=== PATIENT | male | born 1955 | race Caucasian/White ===

== ENCOUNTER 2016-11-15 18:01 | Emergency (ER) | payer OTHER ==
--- NOTE | 2016-11-15 19:25 | ED NURSING NOTES ---
Clinical Report - Nurses [facility] [address] [place] [address] 11/15/2016 18:02 Patient: DAVID NAJERA TRIAGE Triage time 18:Nov 15 2016. Acuity: LEVEL 3. Chief Complaint: DIZZINESS (tachycardia). Alert. No acute distress. --18:12 Alyce Li R.N. 18:03 11/15/16. BP: 195/111. HR: 123. RR: 19. O2 saturation: 98%. Temp: 98.5 F. Pain level now: 0/10. --18:12 Alyce Li R.N. Weight: 81.6 kg stated. Height/Length: 68 inches Per Patient. BMI: 27.4. --18:13 Alyce Li R.N. Medications Albuterol Sulfate Inhalation. --18:04 Alyce Li R.N. Allergies Penicillin. --18:05 Alyce Li R.N. History Arrived by private vehicle. Historian: patient. The patient has had difficulty breathing. 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 Treatment STATE INSPECTOR: None. PAST MEDICAL HX: Immunizations: status is unknown. SOCIAL HX: Never smoker. Occasional alcohol use. No drug use. No infectious disease exposure. SELF HARM ASSESSMENT: A self harm assessment was performed. The patient answered "no" to the question "Do you have thoughts of harming or killing yourself?". FALL RISK ASSESSMENT: Fall risk assessment completed. No fall risk identified. NUTRITIONAL RISK ASSESSMENT: The nutritional risk assessment revealed no deficiencies. FUNCTIONAL ASSESSMENT: Functional assessment: no impairments noted. LEARNING NEEDS ASSESSMENT: The learning needs assessment revealed no barriers. ABUSE ASSESSMENT: Abuse assessment: The patient was asked "Do you feel safe in your home?". SKIN INTEGRITY ASSESSMENT: Skin integrity risk assessment completed. No skin integrity risk identified. --18:12 Alyce Li R.N. PROBLEMS: Asthma. Hypertension. --18:05 Alyce Li R.N. Eczema. --18:07 Alyce Li R.N. Interventions ID band on patient. --18:12 Alyce Li R.N. PHYSICAL ASSESSMENT To room via stretcher. GENERAL / NEURO / PSYCH: Alert. Oriented X 4. Appears in no acute distress. HEENT: Mucous membranes are pink. RESPIRATORY: Respirations not labored. CVS: Capillary refill less than 2 seconds. GI / : Abdomen soft. SKIN: Skin is warm and dry. --18:12 Alyce Li R.N. NURSING PROGRESS NOTES bryologist, pulse oximeter and NIBP monitor placed on patient; forest fire fighter- Lead II; monitor alarms on. Patient gowned. Head of bed elevated. Two patient identifiers checked. Call light placed in reach. Side rails up. Bed placed in lowest position. Brakes of bed on. Patient ready for evaluation- chart flagged. --18:13 Alyce Li R.N. 18:42 11/15/16. BP: 151/77. HR: 122. RR: 12. O2 saturation: 97%. --18:43 Alyce Li R.N. 18:04 11/15/2016 Site #1 started prior to arrival by EMS via IV in the left forearm with an 20g angiocath. --18:44 Alyce Li R.N. 18:33 11/15/16. --18:43 Alyce Li R.N. 18:33 11/15/2016 Labetalol IVP 10 mg given over 2 minute(s) via site #1. Allergies verified and confirmed 5 rights. IV patency established. IV site checked: no pain, redness, or swelling. IV flushed thoroughly pre- and post-medication administration. --18:45 Alyce Li R.N. 18:44 11/15/2016 Started bag #1 1000 mL IV Fluids IV NS (Saline); bolus of 1000 mL over 1 hour(s) via site #1. Allergies verified and confirmed 5 rights. IV patency established. IV site checked: no pain, redness, or swelling. IV flushed thoroughly pre- and post-medication administration. --18:44 Alyce Li R.N. 19:02 11/15/16. BP: 126/78. HR: 92. O2 saturation: 98%. --19:02 Alyce Li R.N. Care transferred and report given (braxton). --19:06 Alyce Li R.N. 18:48 11/15/2016 Labetalol IVP Response: symptoms have improved the patient feels better. (held other 10mg of medication. MD aware. Blood pressure improving rapidly.). --19:08 Alyce Li R.N. DISPOSITION / DISCHARGE 19:47 11/15/16. Departure time: 1935. Condition at departure: improved and stable. No learning barriers present. Discharge instructions provided and reviewed with the patient and family. Reviewed medication(s) side effects, precautions, dosing and course information. Prescription(s) given to the patient. Patient verbalized understanding. Written instructions provided in [place]. The patient was discharged by the physician. He was discharged home and accompanied by parent. He left the Emergency Department ambulatory and via private vehicle. Parent driving. --19:48 Julienne Lemus R.N. 19:39 11/15/16. BP: 152/96. HR: 93. RR: 20. O2 saturation: 99% on room air. Temp: 98 F (oral). Pain level now 0/10. --19:48 Julienne Lemus R.N. Locked/Released at 11/27/2016 9:15 by Aaliyah Gambino R.N.
--- NOTE | 2016-11-15 19:25 | ED CLINICAL REPORT ---
Clinical Report - Physicians/Mid Levels [facility] [address] [place] [address] 11/15/2016 18:02 Patient: DAVID NAJERA Time Seen: 1803. Arrived- By ambulance. Historian- patient and EMS personnel. HISTORY OF PRESENT ILLNESS Chief Complaint: PALPITATIONS. Modifying factors. Not worsened by anything. Not relieved by anything. This started today and is now gone. Did not begin during emotional upset, sleep, rest or exertion. No history of caffeine use prior to onset, decongestants use prior to onset, cocaine use prior to onset or amphetamine use prior to onset. It is described as a fast heart beat and missing beats. He complains of dizziness. No chest pain or discomfort, difficulty breathing, sweating episodes or fainting episodes. No tingling or muscle spasms. He has had mild dizziness described as a light-headedness. ( Pt states he was [facility]x [facility]. He is here from [place], visiting his mother. He states he does not have a PCP, and does not like to go to the doctor. Pt does note a rash, which he states started when he came here 10 days ago. He states his mother does not have the same rash.). Similar symptoms previously: Occasionally. ( Pt states he was dx with HTN some years ago, but works out and drinks lots of water to control it.). Recent medical care: ( Pt states, "I don't go to doctors. I have a bunch of medical books, and I've read them all."). Not recently seen/assessed. REVIEW OF SYSTEMS No fever, chills, cough, orthopnea or calf pain. No enlarged lymph nodes, headache, sore throat, blurred vision or nausea. No abdominal pain, black stools, difficulty with urination, trouble sleeping or vomiting. No diarrhea or bloody stools. The patient has had a moderate, itchy skin rash. No recent exposure. He has not had a poor appetite. All systems otherwise negative, except as recorded above. PAST HISTORY Problems: Eczema. Asthma. Hypertension. Additional Surgeries: no known surgeries. Medications: Albuterol Sulfate Inhalation. Allergies: Penicillin. SOCIAL HISTORY Never smoker. Occasional alcohol use. No drug use. ADDITIONAL NOTES The nursing notes have been reviewed. PHYSICAL EXAM Vital Signs: 11/15/2016 18:03 BP: 195/111. HR: 123. RR: 19. O2 saturation: 98%. Temp: 98.5 F. Pain level now: 0/10. Have been reviewed. Appearance: Alert. Oriented X3. No acute distress. Eyes: Pupils equal, round and reactive to light. Eyes normal inspection. ENT: Nose normal. Neck: Normal inspection. CVS: Tachycardia. Heart sounds normal. Pulses normal. Rhythm normal. Respiratory: No respiratory distress. Breath sounds normal. Abdomen: Soft and nontender. Back: Normal external inspection. Skin: Skin warm and dry. Normal skin color. No rash. Normal skin turgor. Extremities: Extremities exhibit normal ROM. No lower extremity edema. Neuro: Oriented X 3. No motor deficit. No sensory deficit. LABS, X-RAYS, AND EKG EKG: EKG time: (1811). No acute ischemia. Rate: 117. Regular narrow-complex tachycardia. Sinus tachycardia. Normal P waves. Normal MELANIE. Normal QRS complex. Normal axis. Normal ST and T waves, QT and QTc. Prior EKG unavailable. The study has been interpreted contemporaneously by me. The study has been independently viewed by me. The EKG appears to be a good tracing. I agree with and confirm the computer reading of the EKG. Rhythm Strip #1: Time: (18:31). Rate= 123. Sinus tachycardia. Regular rhythm. Narrow QRS complexes. No ectopy. Conduction normal. Normal ST segments and T waves. The study was interpreted by me. Laboratory Tests: CBC w Diff: (ROSANNA: 11/15/2016 18:20) ( MsgRcvd 11/15/2016 18:40) Final results Test Result Flag Units (Reference) WHITE BLOOD COUNT 12.6 H K/uL (4.5-11.5) RED BLOOD COUNT 5.43 M/uL (4.50-5.90) HEMOGLOBIN 16.2 gm/dL (13.5-17.5) HEMATOCRIT 47.9 % (41.0-53.0) MEAN CELL VOLUME 88 fL (80-100) MEAN CORPUSCULAR HGB 30 pg (26-34) MEAN CORPUSCULAR HGB CONC 34 g/dL (31-37) RED CELL DISTRIBUTION WIDTH 13.5 % (11.6-14.8) PLATELET COUNT 252 K/uL (150-400) NEUTROPHIL % 67.5 % (50-75) LYMPH % 17.4 L % (25-40) MONO % 5.6 % (3-14) EOSINOPHIL % 9.1 H % (0-4) BASOPHIL % 0.4 % (0-2) CHEM 13 PANEL: (ROSANNA: 11/15/2016 18:20) ( MsgRcvd 11/15/2016 18:49) Final results Test Result Flag Units (Reference) GLUCOSE 100 mg/dL (70-110) BUN 19 H mg/dL (7-18) CREATININE 1.2 mg/dL (0.6-1.3) Estimated GFR >60 mL/min Estimated GFR- >60 mL/min Note: Persistent reduction over 3 months in eGFR<60 mL/min/1.73 m2 defines CKD. Patients with eGFR values>=60 mL/min/1.73 m2 may also have CKD if evidence ofpersistent proteinuria. Additional information may be foundat www.kidney.org. SODIUM 143 mmol/L (136-145) POTASSIUM 3.9 mmol/L (3.5-5.1) CHLORIDE 109 H mmol/L (98-107) CARBON DIOXIDE 28 mmol/L (21-32) CALCIUM 8.7 mg/dL (8.5-10.1) TOTAL PROTEIN 6.9 g/dL (6.4-8.2) ALBUMIN 3.2 L g/dL (3.3-5.0) BILIRUBIN, TOTAL 0.3 mg/dL (0.0-1.0) ALKALINE PHOSPHATASE 48 U/L (46-116) AST (SGOT) 15 U/L (15-37) ALT (SGPT) 32 U/L (12-78) CPK 42 U/L (24-260) MAGNESIUM 2.0 mg/dL (1.8-2.4) TROPONIN I <0.05 ng/mL (0.00-1.5) TROPONIN REFERENCE RANGE:<0.1 NEGATIVE0.1-1.5 INDETERMINANT>1.5 POSITIVE . Pulse Oximetry: 11/15/2016 18:03 O2 saturation: 98%. (FIO2 - room air). Interpretation: normal. PROGRESS AND PROCEDURES Course of Care: Pt was worked up, and treated with IV Labetolol. His blood pressure improved significantly, and he was asymptomatic. Labs were unremarkable. I did advise pt that he needed to see a PCP as soon as possible to determine a long-term plan for treatment of his HTN. I will give him a short-term antihypertensive prescription. Patient and mother counseled in person regarding the patient's stable condition, test results, diagnosis and need for follow-up. Concerns were addressed. Old medical records reviewed. Disposition: Discharged. Condition: stable and improved. CLINICAL IMPRESSION Palpitations Uncontrolled hypertension. INSTRUCTIONS Warnings: Further evaluation is necessary. GENERAL WARNINGS: Return or contact your physician immediately if your condition worsens or changes unexpectedly, if not improving as expected, or if other problems arise. Your Current Medications: CONTINUE TAKING THE FOLLOWING MEDICATIONS: Albuterol Sulfate Inhalation. Prescription Medications: Lopressor 50 mg: take 1 orally every 12 hours. Dispense thirty (30). No refills. Substitution is permissible. Understanding of the discharge instructions verbalized by patient. Follow-up with: Kevin Aguilar MD, [facility], , [facility], [address] [place] [address]; Kevin Snyder MD, [facility], , [facility], [address] [place] [address] Follow up. Call for the next available appointment. Reason for referral: Follow up for high blood pressure. (Electronically signed by Elzbieta Delaney MD 11/23/2016 9:52)
--- NOTE | 2016-11-15 19:25 | ED NURSING NOTES ---
Clinical Report - Nurses [facility] [address] [place] [address] 11/15/2016 18:02 Patient: DAVID NAJERA TRIAGE Triage time 18:Nov 15 2016. Acuity: LEVEL 3. Chief Complaint: DIZZINESS (tachycardia). Alert. No acute distress. --18:12 Alyce Li R.N. 18:03 11/15/16. BP: 195/111. HR: 123. RR: 19. O2 saturation: 98%. Temp: 98.5 F. Pain level now: 0/10. --18:12 Alyce Li R.N. Weight: 81.6 kg stated. Height/Length: 68 inches Per Patient. BMI: 27.4. --18:13 Alyce Li R.N. Medications Albuterol Sulfate Inhalation. --18:04 Alyce Li R.N. Allergies Penicillin. --18:05 Alyce Li R.N. History Arrived by private vehicle. Historian: patient. The patient has had difficulty breathing. 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 Treatment OIL TANKER CAPTAIN: None. PAST MEDICAL HX: Immunizations: status is unknown. SOCIAL HX: Never smoker. Occasional alcohol use. No drug use. No infectious disease exposure. SELF HARM ASSESSMENT: A self harm assessment was performed. The patient answered "no" to the question "Do you have thoughts of harming or killing yourself?". FALL RISK ASSESSMENT: Fall risk assessment completed. No fall risk identified. NUTRITIONAL RISK ASSESSMENT: The nutritional risk assessment revealed no deficiencies. FUNCTIONAL ASSESSMENT: Functional assessment: no impairments noted. LEARNING NEEDS ASSESSMENT: The learning needs assessment revealed no barriers. ABUSE ASSESSMENT: Abuse assessment: The patient was asked "Do you feel safe in your home?". SKIN INTEGRITY ASSESSMENT: Skin integrity risk assessment completed. No skin integrity risk identified. --18:12 Alyce Li R.N. PROBLEMS: Asthma. Hypertension. --18:05 Alyce Li R.N. Eczema. --18:07 Alyce Li R.N. Interventions ID band on patient. --18:12 Alyce Li R.N. PHYSICAL ASSESSMENT To room via stretcher. GENERAL / NEURO / PSYCH: Alert. Oriented X 4. Appears in no acute distress. HEENT: Mucous membranes are pink. RESPIRATORY: Respirations not labored. CVS: Capillary refill less than 2 seconds. GI / : Abdomen soft. SKIN: Skin is warm and dry. --18:12 Alyce Li R.N. NURSING PROGRESS NOTES library monitor, pulse oximeter and NIBP monitor placed on patient; property assessment monitor- Lead II; monitor alarms on. Patient gowned. Head of bed elevated. Two patient identifiers checked. Call light placed in reach. Side rails up. Bed placed in lowest position. Brakes of bed on. Patient ready for evaluation- chart flagged. --18:13 Alyce Li R.N. 18:42 11/15/16. BP: 151/77. HR: 122. RR: 12. O2 saturation: 97%. --18:43 Alyce iL R.N. 18:04 11/15/2016 Site #1 started prior to arrival by EMS via IV in the left forearm with an 20g angiocath. --18:44 Alyce Li R.N. 18:33 11/15/16. --18:43 Alyce Li R.N. 18:33 11/15/2016 Labetalol IVP 10 mg given over 2 minute(s) via site #1. Allergies verified and confirmed 5 rights. IV patency established. IV site checked: no pain, redness, or swelling. IV flushed thoroughly pre- and post-medication administration. --18:45 Alyce Li R.N. 18:44 11/15/2016 Started bag #1 1000 mL IV Fluids IV NS (Saline); bolus of 1000 mL over 1 hour(s) via site #1. Allergies verified and confirmed 5 rights. IV patency established. IV site checked: no pain, redness, or swelling. IV flushed thoroughly pre- and post-medication administration. --18:44 Alyce Li R.N. 19:02 11/15/16. BP: 126/78. HR: 92. O2 saturation: 98%. --19:02 Alyce iL R.N. Care transferred and report given (braxton). --19:06 Alyce Li R.N. 18:48 11/15/2016 Labetalol IVP Response: symptoms have improved the patient feels better. (held other 10mg of medication. MD aware. Blood pressure improving rapidly.). --19:08 Alyce Li R.N. DISPOSITION / DISCHARGE 19:47 11/15/16. Departure time: 1935. Condition at departure: improved and stable. No learning barriers present. Discharge instructions provided and reviewed with the patient and family. Reviewed medication(s) side effects, precautions, dosing and course information. Prescription(s) given to the patient. Patient verbalized understanding. Written instructions provided in Citizen Of [place]. The patient was discharged by the physician. He was discharged home and accompanied by parent. He left the Emergency Department ambulatory and via private vehicle. Parent driving. --19:48 Julienne Lemus R.N. 19:39 11/15/16. BP: 152/96. HR: 93. RR: 20. O2 saturation: 99% on room air. Temp: 98 F (oral). Pain level now 0/10. --19:48 Julienne Lemus R.N. Locked/Released at 11/27/2016 9:15 by Aaliyah Gambino R.N.
--- NOTE | 2016-11-15 19:25 | ED ORDER SUMMARY ---
..... Patient: DAVID NAJERA OrderSheet [facility] VisitID: [id number] [place] [address] 61y, M Registration Date/Time: 11/15/2016 ORDER SHEET Weight: 81.6 kg (stated) Allergies: Penicillin GENERAL ORDERS: Cardiac Panel Stat (18:20 11/15/2016 Gabby MARAVILLA) (Ack 18:21 LNations ER Tech1) (18:30 KKnebel R.N.) Cell Lead (Continuous) (18:20 11/15/2016 Gabby MARAVILLA) (Ack 18:21 LNations ER Tech1) (18:23 KKnebel R.N.) Oxygen (2 L/min) (NC) (18:20 11/15/2016 Gabby MARAVILLA) (Ack 18:21 LNations ER Tech1) (18:23 KKnebel R.N.) Pulse oximeter (18:20 11/15/2016 Gabby MARAVILLA) (Ack 18:21 LNations ER Tech1) (18:23 KKnebel R.N.) EKG - ER Stat (18:20 11/15/2016 Gabby MARAVILLA) (18:21 KHoerner) (18:24 KKnebel R.N.) MEDICATION ORDERS: IV FLUIDS: IV NS : initial bolus 1000 mL (1000 mL/hr), then none - (NOW) (18:20 11/15/2016 Gabby MARAVILLA) (18:44 KKnebel R.N.) Labetalol IV 20 mg (HIGH ALERT MEDICATION, NOW) (18:20 11/15/2016 Gabby MARAVILLA) (18:45 KKnebel R.N.) ORDER SHEET NOTES: [Electronically signed by Elzbieta Delaney MD (09:52 11/23/2016)] [Electronically signed by Aaliyah Gambino R.N. (09:15 11/27/2016)] [Electronically locked/signed by Aaliyah Gambino R.N. (:11/27/2016)]
--- NOTE | 2016-11-15 19:25 | ED CLINICAL REPORT ---
Clinical Report - Physicians/Mid Levels [facility] [address] [place] [address] 11/15/2016 18:02 Patient: DAVID NAJERA Time Seen: 1803. Arrived- By ambulance. Historian- patient and EMS personnel. HISTORY OF PRESENT ILLNESS Chief Complaint: PALPITATIONS. Modifying factors. Not worsened by anything. Not relieved by anything. This started today and is now gone. Did not begin during emotional upset, sleep, rest or exertion. No history of caffeine use prior to onset, decongestants use prior to onset, cocaine use prior to onset or amphetamine use prior to onset. It is described as a fast heart beat and missing beats. He complains of dizziness. No chest pain or discomfort, difficulty breathing, sweating episodes or fainting episodes. No tingling or muscle spasms. He has had mild dizziness described as a light-headedness. ( Pt states he was at the [facility] when sx started. He is here from [place], visiting his mother. He states he does not have a PCP, and does not like to go to the doctor. Pt does note a rash, which he states started when he came here 10 days ago. He states his mother does not have the same rash.). Similar symptoms previously: Occasionally. ( Pt states he was dx with HTN some years ago, but works out and drinks lots of water to control it.). Recent medical care: ( Pt states, "I don't go to doctors. I have a bunch of medical books, and I've read them all."). Not recently seen/assessed. REVIEW OF SYSTEMS No fever, chills, cough, orthopnea or calf pain. No enlarged lymph nodes, headache, sore throat, blurred vision or nausea. No abdominal pain, black stools, difficulty with urination, trouble sleeping or vomiting. No diarrhea or bloody stools. The patient has had a moderate, itchy skin rash. No recent exposure. He has not had a poor appetite. All systems otherwise negative, except as recorded above. PAST HISTORY Problems: Eczema. Asthma. Hypertension. Additional Surgeries: no known surgeries. Medications: Albuterol Sulfate Inhalation. Allergies: Penicillin. SOCIAL HISTORY Never smoker. Occasional alcohol use. No drug use. ADDITIONAL NOTES The nursing notes have been reviewed. PHYSICAL EXAM Vital Signs: 11/15/2016 18:03 BP: 195/111. HR: 123. RR: 19. O2 saturation: 98%. Temp: 98.5 F. Pain level now: 0/10. Have been reviewed. Appearance: Alert. Oriented X3. No acute distress. Eyes: Pupils equal, round and reactive to light. Eyes normal inspection. ENT: Nose normal. Neck: Normal inspection. CVS: Tachycardia. Heart sounds normal. Pulses normal. Rhythm normal. Respiratory: No respiratory distress. Breath sounds normal. Abdomen: Soft and nontender. Back: Normal external inspection. Skin: Skin warm and dry. Normal skin color. No rash. Normal skin turgor. Extremities: Extremities exhibit normal ROM. No lower extremity edema. Neuro: Oriented X 3. No motor deficit. No sensory deficit. LABS, X-RAYS, AND EKG EKG: EKG time: (1811). No acute ischemia. Rate: 117. Regular narrow-complex tachycardia. Sinus tachycardia. Normal P waves. Normal MELANIE. Normal QRS complex. Normal axis. Normal ST and T waves, QT and QTc. Prior EKG unavailable. The study has been interpreted contemporaneously by me. The study has been independently viewed by me. The EKG appears to be a good tracing. I agree with and confirm the computer reading of the EKG. Rhythm Strip #1: Time: (18:31). Rate= 123. Sinus tachycardia. Regular rhythm. Narrow QRS complexes. No ectopy. Conduction normal. Normal ST segments and T waves. The study was interpreted by me. Laboratory Tests: CBC w Diff: (ROSANNA: 11/15/2016 18:20) ( MsgRcvd 11/15/2016 18:40) Final results Test Result Flag Units (Reference) WHITE BLOOD COUNT 12.6 H K/uL (4.5-11.5) RED BLOOD COUNT 5.43 M/uL (4.50-5.90) HEMOGLOBIN 16.2 gm/dL (13.5-17.5) HEMATOCRIT 47.9 % (41.0-53.0) MEAN CELL VOLUME 88 fL (80-100) MEAN CORPUSCULAR HGB 30 pg (26-34) MEAN CORPUSCULAR HGB CONC 34 g/dL (31-37) RED CELL DISTRIBUTION WIDTH 13.5 % (11.6-14.8) PLATELET COUNT 252 K/uL (150-400) NEUTROPHIL % 67.5 % (50-75) LYMPH % 17.4 L % (25-40) MONO % 5.6 % (3-14) EOSINOPHIL % 9.1 H % (0-4) BASOPHIL % 0.4 % (0-2) CHEM 13 PANEL: (ROSANNA: 11/15/2016 18:20) ( MsgRcvd 11/15/2016 18:49) Final results Test Result Flag Units (Reference) GLUCOSE 100 mg/dL (70-110) BUN 19 H mg/dL (7-18) CREATININE 1.2 mg/dL (0.6-1.3) Estimated GFR >60 mL/min Estimated GFR- >60 mL/min Note: Persistent reduction over 3 months in eGFR<60 mL/min/1.73 m2 defines CKD. Patients with eGFR values>=60 mL/min/1.73 m2 may also have CKD if evidence ofpersistent proteinuria. Additional information may be foundat www.kidney.org. SODIUM 143 mmol/L (136-145) POTASSIUM 3.9 mmol/L (3.5-5.1) CHLORIDE 109 H mmol/L (98-107) CARBON DIOXIDE 28 mmol/L (21-32) CALCIUM 8.7 mg/dL (8.5-10.1) TOTAL PROTEIN 6.9 g/dL (6.4-8.2) ALBUMIN 3.2 L g/dL (3.3-5.0) BILIRUBIN, TOTAL 0.3 mg/dL (0.0-1.0) ALKALINE PHOSPHATASE 48 U/L (46-116) AST (SGOT) 15 U/L (15-37) ALT (SGPT) 32 U/L (12-78) CPK 42 U/L (24-260) MAGNESIUM 2.0 mg/dL (1.8-2.4) TROPONIN I <0.05 ng/mL (0.00-1.5) TROPONIN REFERENCE RANGE:<0.1 NEGATIVE0.1-1.5 INDETERMINANT>1.5 POSITIVE . Pulse Oximetry: 11/15/2016 18:03 O2 saturation: 98%. (FIO2 - room air). Interpretation: normal. PROGRESS AND PROCEDURES Course of Care: Pt was worked up, and treated with IV Labetolol. His blood pressure improved significantly, and he was asymptomatic. Labs were unremarkable. I did advise pt that he needed to see a PCP as soon as possible to determine a long-term plan for treatment of his HTN. I will give him a short-term antihypertensive prescription. Patient and mother counseled in person regarding the patient's stable condition, test results, diagnosis and need for follow-up. Concerns were addressed. Old medical records reviewed. Disposition: Discharged. Condition: stable and improved. CLINICAL IMPRESSION Palpitations Uncontrolled hypertension. INSTRUCTIONS Warnings: Further evaluation is necessary. GENERAL WARNINGS: Return or contact your physician immediately if your condition worsens or changes unexpectedly, if not improving as expected, or if other problems arise. Your Current Medications: CONTINUE TAKING THE FOLLOWING MEDICATIONS: Albuterol Sulfate Inhalation. Prescription Medications: Lopressor 50 mg: take 1 orally every 12 hours. Dispense thirty (30). No refills. Substitution is permissible. Understanding of the discharge instructions verbalized by patient. Follow-up with: Kevin Aguilar MD, [facility], , [facility], [address] [place] [address]; Kevin Snyder MD, [facility], , [facility], [address] [place] [address] Follow up. Call for the next available appointment. Reason for referral: Follow up for high blood pressure. (Electronically signed by Elzbieta Delaney MD 11/23/2016 9:52)
--- NOTE | 2016-11-15 19:25 | ED ORDER SUMMARY ---
..... Patient: DAVID NAJERA OrderSheet [facility] VisitID: [id number] [place] [address] 61y, M Registration Date/Time: 11/15/2016 ORDER SHEET Weight: 81.6 kg (stated) Allergies: Penicillin GENERAL ORDERS: Cardiac Panel Stat (18:20 11/15/2016 Gabby MARAVILLA) (Ack 18:21 LNations ER Tech1) (18:30 KKnebel R.N.) Critical Care Rn (Continuous) (18:20 11/15/2016 Gabby MARAVILLA) (Ack 18:21 LNations ER Tech1) (18:23 KKnebel R.N.) Oxygen (2 L/min) (NC) (18:20 11/15/2016 Gabby MARAVILLA) (Ack 18:21 LNations ER Tech1) (18:23 KKnebel R.N.) Pulse oximeter (18:20 11/15/2016 Gabby MARAVILLA) (Ack 18:21 LNations ER Tech1) (18:23 KKnebel R.N.) EKG - ER Stat (18:20 11/15/2016 Gabby MARAVILLA) (18:21 KHoerner) (18:24 KKnebel R.N.) MEDICATION ORDERS: IV FLUIDS: IV NS : initial bolus 1000 mL (1000 mL/hr), then none - (NOW) (18:20 11/15/2016 Gabby MARAVILLA) (18:44 KKnebel R.N.) Labetalol IV 20 mg (HIGH ALERT MEDICATION, NOW) (18:20 11/15/2016 Gabby MARAVILLA) (18:45 KKnebel R.N.) ORDER SHEET NOTES: [Electronically signed by Elzbieta Delaney MD (09:52 11/23/2016)] [Electronically signed by Aaliyah Gambino R.N. (09:15 11/27/2016)] [Electronically locked/signed by Aaliyah Gambino R.N. (:11/27/2016)]
--- NOTE | 2016-11-27 09:15 | ED MED RECONCILIATION SUMMARY ---
Patient: DAVID NAJERA Medication Reconciliation Report [facility] VisitID: [id number] [address] [place] [address] 61y, M Registration Date/Time: 11/15/2016 Weight: 81.6 kg Height/Length: 68 in. BMI: 27.4 ALLERGIES: Penicillin The patient's Home Medications are listed below: CONTINUE TAKING THE FOLLOWING MEDICATIONS: Albuterol Sulfate Inhalation The source(s) of the original Home Medication information: Not obtained. The following Medications were given to the patient in the Emergency Department: IV NS IV Fluids bolus 1000 mL over 1 hour(s), administered: 11/15/2016 6:44:00 PM Labetalol [IVP] IVP 10 mg, administered: 11/15/2016 6:33:00 PM The following Medications were prescribed to the patient: Lopressor 50 mg: take 1 orally every 12 hours. Dispense thirty (30). No refills. Substitution is permissible. -- Elzbieta Delaney MD
--- NOTE | 2016-11-27 09:15 | ED MAR SUMMARY ---
..... Medication Administration Record [facility] [address] [place] [address] Patient: DAVID NAJERA Visit ID: [id number] 61y, M Weight: 81.6 kg Height/Length: 68 in BMI: 27.4 ALLERGIES: Penicillin Given 18:33 11/15/2016 Alyce Li RElen Medication Administered: LABETALOL [IVP], Dose: 10 mg IVP over 2 minute(s), Site: #1 left forearm. Medication Ordered: Labetalol IV 20 mg (HIGH ALERT MEDICATION, NOW). Start 18:44 11/15/2016 Alyce Li, RElen Medication Administered: IV NS (SALINE), Dose: IV Fluids, Bolus: 1000 mL over 1 hour(s), Dispensed: 1000 mL bag, Site: #1 left forearm. Medication Ordered: IV NS : initial bolus 1000 mL (1000 mL/hr), then none - (NOW).
--- NOTE | 2016-11-27 09:15 | ED MAR SUMMARY ---
..... Medication Administration Record [facility] [address] [place] [address] Patient: DAVID NAJERA Visit ID: [id number] 61y, M Weight: 81.6 kg Height/Length: 68 in BMI: 27.4 ALLERGIES: Penicillin Given 18:33 11/15/2016 Alyce Li RElen Medication Administered: LABETALOL [IVP], Dose: 10 mg IVP over 2 minute(s), Site: #1 left forearm. Medication Ordered: Labetalol IV 20 mg (HIGH ALERT MEDICATION, NOW). Start 18:44 11/15/2016 Alyce Li, RElen Medication Administered: IV NS (SALINE), Dose: IV Fluids, Bolus: 1000 mL over 1 hour(s), Dispensed: 1000 mL bag, Site: #1 left forearm. Medication Ordered: IV NS : initial bolus 1000 mL (1000 mL/hr), then none - (NOW).
--- NOTE | 2016-11-27 09:15 | ED MED RECONCILIATION SUMMARY ---
Patient: DAVID NAJERA Medication Reconciliation Report [facility] VisitID: [id number] [address] [place] [address] 61y, M Registration Date/Time: 11/15/2016 Weight: 81.6 kg Height/Length: 68 in. BMI: 27.4 ALLERGIES: Penicillin The patient's Home Medications are listed below: CONTINUE TAKING THE FOLLOWING MEDICATIONS: Albuterol Sulfate Inhalation The source(s) of the original Home Medication information: Not obtained. The following Medications were given to the patient in the Emergency Department: IV NS IV Fluids bolus 1000 mL over 1 hour(s), administered: 11/15/2016 6:44:00 PM Labetalol [IVP] IVP 10 mg, administered: 11/15/2016 6:33:00 PM The following Medications were prescribed to the patient: Lopressor 50 mg: take 1 orally every 12 hours. Dispense thirty (30). No refills. Substitution is permissible. -- Elzbieta Delaney MD
--- NOTE | 2016-11-27 09:15 | ED DISCHARGE INSTRUCTIONS ---
Patient: DAVID NAJERA General Instructions [facility] VisitID: [id number] [place] [address] 61y, M Registration Date/Time: 11/15/2016 Palpitations Uncontrolled hypertension. INSTRUCTIONS Warnings: Further evaluation is necessary. GENERAL WARNINGS: Return or contact your physician immediately if your condition worsens or changes unexpectedly, if not improving as expected, or if other problems arise. Your Current Medications: CONTINUE TAKING THE FOLLOWING MEDICATIONS: Albuterol Sulfate Inhalation. Prescription Medications: Lopressor 50 mg: take 1 orally every 12 hours. Dispense thirty (30). No refills. Substitution is permissible. Understanding of the discharge instructions verbalized by patient. Follow-up with: Kevin Aguilar MD, [facility], , [facility], [address] [place] [address]; Kevin Snyder MD, [facility], , [facility], [address] [place] [address] Follow up. Call for the next available appointment. Reason for referral: Follow up for high blood pressure. ADDITIONAL INFORMATION Arrhythmia Electrical impulses cause the normal heart to beat 60 to 100 times a minute. These impulses come from a natural pacemaker deep inside the heart muscle. Each impulse causes the heart muscle to contract. This causes the blood to flow through the heart and out to the tissues and organs of your body. An arrhythmia is a change from the normal speed or pattern of these electrical impulses. This can cause the heart to beat too fast (tachycardia); or too slow (bradycardia); or in an unsteady pattern (irregular rhythm). Symptoms of arrhythmias Different people experience arrhythmias differently. Sometimes they may not have symptoms, but just notice a change in their pulse. Symptoms can include: Fluttering feeling in the chest Shortness of breath Chest pain or pressure Lightheadedness or dizziness Fainting or nearly fainting Palpitations Tiredness, fatigue, or weakness Causes of arrhythmias Arrhythmias are most often due to heart disease such as: Coronary artery disease (arteriosclerosis) Disease of the heart valves Enlarged heart High blood pressure Heart failure Other causes ofarrhythmia include: Certain medicines (such as asthma inhalers and decongestants) Some herbal supplements Cardiac stimulant drugs (such as cocaine, amphetamine, diet pills, certain decongestant cold medicines, caffeine, and nicotine) Excessive alcohol use Medical conditions such as thyroid disease, anemia, anxiety, and panic disorder Arrythmias can often be prevented. The cause and type of arrhythmia determines the best treatment. Sometimes your doctor may want to monitor your heart rate over a 24-hour period or longer. This can help identify the cause of your arrhythmia and find the best treatment. This can be done with a Holter monitor,a portable EKG recording device attached by wires to your chest. You can carry this with you as you perform your routine activities during the monitoring period. Home care Avoid cardiac stimulants (such as cocaine, amphetamine, diet pills, certain decongestant cold medicines, caffeine, and nicotine). If you smoke, stop smoking. Contact your doctor or a local stop-smoking program for help. Tell your doctor about any prescription, [id number] or herbal medicines you take. These may be affecting your heart rhythm. Follow-up care Follow up with your health care provider or as advised by our staff. If a Holter monitor has been recommended, contact the cardiologistyou have been referred toas soon as you canpick up the device. Other outpatient tests may also be arranged for you at that time. Call 911 This is the fastest and safest way to get to the emergency department. The paramedics can also start treatment on the way to the hospital, if needed. Don'twait until your symptoms are severe to call 911. Other reasons to call 911 besides chest pain include: Chest, shoulder, arm, neck, or back pain Shortness of breath Feeling lightheaded, faint, or dizzy Rapid heart beat Slower than usual heart rate compared to your normal Angina withweakness, dizziness, fainting, heavy sweating, nausea, or vomiting Extreme drowsiness, or confusion Weakness of an arm or leg or one side of the face Difficulty with speech or vision When to seek medical care Remember, things are not always like they are on TV. Sometimes it is not so obvious. You may only feel weak or just "not right." If it is not clear or if you have any doubt, call for advice. Seek help for chest pain, or it feels different from usual, even if your symptoms are mild. Do not drive yourself. Have someone else drive. If no one can drive you, call 911. If your doctor has given you medicines to take when you have symptoms, take them, but do not delay getting help while trying to find them. Do not delay. Fast diagnosis and treatment can prevent or limit the amount of heart damage during a heart attack or stroke. Do not go to your doctor's ofice or a clinic because they will not be able to provide all of the testing or treatment required for this condition. Hypertension, Out Of Control (Established) Your blood pressure was unusually high today. This can occur as a result of missing doses of your blood pressure medicine. Some asthma inhalers, decongestants, diet pills, and street drugs such as cocaine and amphetamine can worsen hypertension. An increase in body weight, increase in salt intake, smoking, and caffeine are other causes. Emotional upset or acute pain can cause a sudden rapid rise in blood pressure which may return to normal after a period of rest. A normal blood pressure is less than 140/90. The first (top) number is the systolic pressure. The second (bottom) number is the diastolic pressure. Hypertension exists when either the top number is 140 or higher, OR the bottom number is 90 or higher on repeated measurements. Home Care: All patients with high blood pressure should do the following to lower their pressure. If you are on blood pressure medicines, then these methods may reduce or eliminate your need for medicines in the future. Begin a weight-loss program if you are overweight. Reduce your salt intake. Avoid high-salt foods (olives, pickles, smoked meats, salted potato chips, etc.). Do not add salt to your food at the table. Use only small amounts of salt when cooking. Begin an exercise program. Discuss with your doctor what type of exercise program would be best for you. It doesnt have to be difficult. Even brisk walking for 20 minutes3 times a week is a good form of exercise. Avoid medicines which contain heart stimulants. This includes many cold and sinus decongestant pills and sprays as well as diet pills. Check the warnings about hypertension on the label. Stimulants such as amphetamine or cocaine could be lethal for someone with hypertension. Never take these. Limit your caffeine intake or switch to decaf. Stop smoking. If you are a long-time smoker, this can be hard. Enroll in a stop-smoking program to improve your chance of success. Talk to your physician about ways to improve your chance of success. Learning how to handle stress better is an important part of any program to lower blood pressure. Learn about relaxation methods such as meditation, yoga, or biofeedback. If medicines were prescribed, take them exactly as directed. Missing doses may cause your blood pressure to get out of control. Consider buying an automatic blood pressure machine (available at many pharmacies). Use this to monitor your blood pressure and report to your doctor. Follow Up: Regular visits to your own doctor for blood pressure checks and medicine adjustment is an important part of your care. Make a follow-up appointment as directed by our staff. Get Prompt Medical Attention if any of the following occur: Chest, arm, shoulder, neck, or upper back pain Shortness of breath Severe headache Throbbing or rushing sound in the ears Nosebleed Extreme drowsiness, confusion, or fainting Dizziness or vertigo (dizziness with spinning sensation) Weakness of an arm or leg or one side of the face Difficulty with speech or vision You have been given the following additional information: Arrhythmia, Unspecified Hypertension, Established, Out Of Control (Electronically signed by Elzbieta Delaney MD 11/23/2016 9:52)
== END 2016-11-15 19:36 | disposition home or self-care (01) ==
LOC: ED SRH 18:01
DX: I10 Essential (primary) hypertension (principal); R00.2 Palpitations; J45.909 Unspecified asthma, uncomplicated; Z79.899 Other long term (current) drug therapy; Z88.0 Allergy status to penicillin
CPT/HCPCS: 90100; 90616; 92610; 92720; 95059